=== PATIENT | female | born 2000 | race Caucasian/White ===

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

== ENCOUNTER → 2018-05-27 | Outpatient (CLI) | payer BC, SELFPAY ==
[~2018-05-27] MED LIST changes: +Zofran Odt4 MG SL
[2018-05-29 22:10] LABS: CHLAMYDIA TRACHOMATIS, NAA Negative (Negative); NEISSERIA GONORRHOEAE, NAA Negative (Negative)
== END | disposition home or self-care (01) ==
LOC: LAB 16:39 → LAB SHORT 16:39
PROVIDERS: Obstetrics & Gynecology
DX: Z20.2 Contact with and (suspected) exposure to infections with a predominantly sexual mode of transmission (principal)
CPT/HCPCS: 87491; 87591

== ENCOUNTER 2018-12-04 19:32 | Observation (INO) | payer BC ==
[~2018-12-04] VITALS: Ht 162.6 cm; Wt 56.7 kg
[~2018-12-04 19:32] MED LIST changes: -ACET325 PO; -HYDR1TAB94 PO; -VITAFOL OB PO; -Verotin-Gr Cap1 EACH PO
[2018-12-04] MEDS ORDERED: Verotin-Gr Cap1 EACH PO (19:40)
[2018-12-04 19:55] LABS: Source, Urine Clean Catch
[2018-12-04 19:59] LABS: Appearance, Urine Clear (Clear); Bilirubin, Urine Neg (Neg); Blood, Urine Neg (Neg); Color, Urine Yellow (P-Yellow); Glucose Qualitative, Urine Neg (Neg); Ketones, Urine Neg (Neg); Leukocyte Esterase, Urine Neg (Neg); Nitrite, Urine Neg (Neg); Protein, Urine Neg (Neg); Urobilinogen, Urine NORM (Normal)
[2018-12-04 20:03] LABS: BASOPHILS ABSOLUTE AUTO 0.02 K/mm3 (0.00-0.23); BASOPHILS PERCENT AUTO 0 % (0-2); EOSINOPHILS PERCENT AUTO 1 % (0-6); Hematocrit 37.4 % (33.0-51.0); Hemoglobin 12.4 g/dL (11.5-16.0); IMMATURE GRAN ABSOLUTE AUTO 0.05 K/mm3 (0.00-0.10); IMMATURE GRAN PERCENT AUTO 1 % (0-1); LYMPHOCYTES ABSOLUTE AUTO 0.71 K/mm3 (0.84-5.20); LYMPHOCYTES PERCENT AUTO 8 % (21-46); MONOCYTES PERCENT AUTO 6 % (4-13); Mean Corpuscular HGB 29.3 pg (26.0-34.0); Mean Corpuscular HGB Conc 33.2 g/dL (31.5-36.5); Mean Corpuscular Volume 88 fL (80-100); Mean Platelet Volume 10.6 fL (9.1-12.4); NEUTROPHILS ABSOLUTE AUTO 7.17 K/mm3 (1.96-9.15); NEUTROPHILS PERCENT AUTO 84 % (41-73); Platelet Count 233 K/mm3 (150-400); RDW Coefficient Variation 13.2 % (11.7-14.2); Red Blood Cell Count 4.23 M/mm3 (3.80-5.20); White Blood Cell Count 8.55 K/mm3 (4.00-11.30)
[2018-12-04 20:52] LABS: Alanine Aminotransfer (ALT/SGP 32 U/L (12-78); Albumin, Blood 3.9 g/dL (3.4-5.0); Albumin/Globulin Ratio 0.9 (0.8-1.8); Alk Phos 70 U/L (50-136); Anion Gap 9 mmol/L (6-16); Aspartate Aminotrans (AST/SGOT 15 U/L (12-37); Bilirubin, Total 0.3 mg/dL (0.1-1.0); Blood Urea Nitrogen 4 mg/dL (8-24); Bun/Creatinine Ratio 8.2 (12.0-20.0); CO2, Blood 23 mmol/L (21-32); Calcium, Blood 8.9 mg/dL (8.5-10.1); Chloride, Blood 100 mmol/L (98-108); Creatinine, Blood 0.49 mg/dL (0.40-1.00); Globulin, Blood 4.3 g/dL (2.2-4.0); Glomerular Filtration Rate >60 (60-); Glucose, Blood 80 mg/dL (70-99); Potassium, Blood 3.6 mmol/L (3.5-5.5); Sodium, Blood 132 mmol/L (136-145); Total Protein, Blood 8.2 g/dL (6.4-8.2)
[2018-12-04 21:33] LABS: Beta HCG, Quantitative, Serum 131792 mIU/mL (0-3)
--- NOTE | 2018-12-05 07:25 | NUR ---
SHIFT SUMMARY PT WAS A NEW ADMIT LAST NIGHT FOR ACUTE APPY. SHE IS 11 WEEKS . PT HAS GOTTEN 2 DOSES OF UNASYN, IV FENTANYL FOR PAIN. SHE IS A&O, INDEP IN THE ROOM. SHE HAS BEEN NPO AFTER MN IN PREP FOR SURGERY TODAY. SURGICAL PACKET STARTED. REPORT PASSED TO ONCOMING SHIFT.
--- NOTE | 2018-12-05 11:59 | NUR ---
DAY SURGERY PT TAKEN TO DAY SURGERY BY TRISH SOTOMAYOR AT THIS TIME.
--- NOTE | 2018-12-05 12:21 | NUR ---
FBP RN UP TO ATTEMPT TO DETERMINE HEART TONES, UNABLE DUE TO GESTATION EXPECTED. LIMITED OB ULTRASOUND ORDERED PER VERBAL ORDER FROM DR DIEZ. ULTRASOUND NOTIFIED, WILL BE DONE HERE IN SDS AT BEDSIDE. MOTHER PRESENT AT BEDSIDE PER PATIENT REQUEST.
--- NOTE | 2018-12-05 12:24 | NUR ---
OFFSET SECOND PRESS OPERATOR HERE FOR ULTRASOUND NOW. OMAR TO BREAK ME FOR LUNCH, REPORT GIVEN.
--- NOTE | 2018-12-05 12:28 | NUR ---
PER ULTRASOUND, HEART RATE 169 BPM, WILL REPORT TO DR DIEZ AND DR OSORIO. PATIENT GETTING UP TO BR FOR UNMEASURED VOID.
--- NOTE | 2018-12-05 12:32 | NUR ---
NO CLIP NEEDED AND CHLORHEXIDINE WIPE DONE.
--- NOTE | 2018-12-05 13:03 | NUR ---
PT REPORTS NAUSEA. MED WITH ZOFRAN 4 MG IVP X 1-SEE EMAR.
--- NOTE | 2018-12-05 13:18 | NUR ---
PATIENT BACK FROM ANOTHER TRIP TO BR, BACK TO BED, DENIES NEEDS AT THIS TIME. PATIENT AND FAMILY UPDATED AND REASSUMED CARE.
--- NOTE | 2018-12-05 13:34 | NUR ---
NOTIFIED PACU OF PATIENT'S , WILL DEFER TO DR DIEZ FOR POST SURGICAL REPEAT OF ULTRASOUND.
--- NOTE | 2018-12-05 13:38 | NUR ---
WINDING INSPECTOR AND TESTER REPORT COMPLETED AT BEDSIDE WITH MANAS MURO RN.
--- NOTE | 2018-12-05 13:45 | NUR ---
PER DR DIEZ PATIENT REMOVED HER TONGUE RING AND GAVE IT TO HER MOTHER.
--- NOTE | 2018-12-05 13:50 | NUR ---
PATIENT REMEMBERED SHE HAD A SEPTUM PIERCING, PATIENT REMOVED AND GAVE TO HER MOTHER WELL.
--- NOTE | 2018-12-05 14:07 | NUR ---
DR OSORIO AT PATIENT BEDSIDE TO DISCUSS SURGERY WITH THE PATIENT.
--- NOTE | 2018-12-05 14:07 | NUR ---
DISCUSSED PATIENT'S ABDOMINAL ANCHORS WITH DR OSORIO. HE WILL ASSESS IN THE OR.
--- NOTE | 2018-12-05 14:19 | NUR ---
PATIENT IMMEDIATELY OPERATIVELY UNMEASURED VOID.
--- NOTE | 2018-12-05 15:55 | NUR ---
1650- HEART TONES 160 PER MINUTE PER ULTRASOUND
--- NOTE | 2018-12-05 16:20 | NUR ---
PT ARRIVED BACK TO ROOM 218 FROM PACU S/P LAP APPY PT REPORTS SHOULDER PAIN MORE THEN ANYTHING ELSE WANTING TO TRY SOMETHING TO EAT CL GIVEN WILL ORDER REG TRAY FOR DINNER PER PT REQ PT HAD NAUSEA MILD IN PACU STATED IT IS GETTING BETTER
--- NOTE | 2018-12-05 17:26 | NUR ---
PT ARRIVED POST-OP TO THE ROOM AT APPROXIMATELY 1615. PT ALERT AND ORIENTED. SHE REPORTS PAIN TO HER R SHOULDER BUT DENIES NEED FOR PAIN MEDICATION. PT DENIES NAUSEA. ABD LAP SITES CLEAN DRY AND INTACT, STERI STRIPS IN PLACE. VSS. WILL CONTINUE TO MONITOR.
--- NOTE | 2018-12-05 19:27 | NUR ---
SHIFT SUMMARY PAIN HAS BEEN MINIMAL POST OP. PT IS TOLERATING PO WELL. VOIDING. VSS. REPORT GIVEN TO RENATA SOTOMAYOR.
--- NOTE | 2018-12-06 04:39 | NUR ---
SHIFT SUMMARY POD#1 LAP APPENDECTOMY; SITES CDI X3. ABD SOFT; BTX4; PT DECLINED PAIN MEDICATIONS T/O SHIFT. PT DENIES NAUSEA. CALL LIGHT IN REACH; PT DEMONSTRATES USE. WCTM UNTIL REPORT TO DAY SHIFT RN.
[2018-12-06] MEDS ORDERED: HYDR1TAB94 PO (11:22)
[2018-12-06] MEDS ORDERED: VITAFOL OB PO (11:36)
[2018-12-06] MEDS ORDERED: ACET325 PO (11:37)
--- NOTE | 2018-12-06 11:58 | NUR ---
ANUM HERNANDEZ IN TO SEE PT THIS AM, ASSESS LAP SITES. STATE PT MAY GO HOME TODAY, PLACE ORDERS. PT STATE FEELS READY TO GO HOME, STATE L UPPER ABD TENDERNESS CONTINUES HOWEVER STATE NOT PAINFUL, DECLINES PRN. IV D/C INTACT. D/C INSTRUCT PROVIDED WITH EMPHASIS ON F/U WITH DR OSORIO & REPORTING ANY S/S INFECTION. HARD COPY NORCO SCRIPT PROVIDED TO PT. SHE DECLINE W/C ESCORT, STATE PREFER TO AMBULATE FROM HOSP, ACCOMPANIED BY HER MOTHER.
== END 2018-12-06 12:00 | disposition home or self-care (01) ==
LOC: ER 19:32 → SURS 19:33 → ER 23:01 → SURS 23:01
PROVIDERS: Physician Assistant; ADMIT Surgery
PROC: 0DTJ4ZZ Resection of Appendix, Percutaneous Endoscopic Approach (ICD-10-PCS; principal; 2018-12-04)
DX: O99.611 Diseases of the digestive system complicating pregnancy, first trimester (principal); K35.80 Unspecified acute appendicitis; Z88.0 Allergy status to penicillin; Z87.891 Personal history of nicotine dependence; Z3A.10 10 weeks gestation of pregnancy
CPT/HCPCS: 36415; 76801; 76815; 76817; 76857; 80053; 81003; 84702; 85025; 88304; 96365; 96375; 99285-25; G0378; J0295; J1100; J1885; J2250; J2405; J2710; J3010; J7030; J7120

== ENCOUNTER → 2018-12-04 | Outpatient (CLI) | payer BC ==
[~2018-12-04] MED LIST changes: +ACET325 PO; +HYDR1TAB94 PO; +VITAFOL OB PO; +Verotin-Gr Cap1 EACH PO
[2018-12-04 19:14] LABS: BASOPHILS ABSOLUTE AUTO 0.02 K/mm3 (0.00-0.23); BASOPHILS PERCENT AUTO 0 % (0-2); EOSINOPHILS ABSOLUTE AUTO 0.13 K/mm3 (0.00-0.68); EOSINOPHILS PERCENT AUTO 2 % (0-6); Hematocrit 35.5 % (33.0-51.0); Hemoglobin 11.9 g/dL (11.5-16.0); IMMATURE GRAN ABSOLUTE AUTO 0.04 K/mm3 (0.00-0.10); IMMATURE GRAN PERCENT AUTO 1 % (0-1); LYMPHOCYTES ABSOLUTE AUTO 0.63 K/mm3 (0.84-5.20); LYMPHOCYTES PERCENT AUTO 7 % (21-46); MONOCYTES ABSOLUTE AUTO 0.53 K/mm3 (0.16-1.47); MONOCYTES PERCENT AUTO 6 % (4-13); Mean Corpuscular HGB 29.5 pg (26.0-34.0); Mean Corpuscular HGB Conc 33.5 g/dL (31.5-36.5); Mean Corpuscular Volume 88 fL (80-100); NEUTROPHILS ABSOLUTE AUTO 7.19 K/mm3 (1.96-9.15); NEUTROPHILS PERCENT AUTO 84 % (41-73); Platelet Count 234 K/mm3 (150-400); RDW Coefficient Variation 13.2 % (11.7-14.2); RDW Standard Deviation 42.8 fL (35.1-46.3); Red Blood Cell Count 4.04 M/mm3 (3.80-5.20); White Blood Cell Count 8.54 K/mm3 (4.00-11.30)
[2018-12-04 19:42] LABS: Alanine Aminotransfer (ALT/SGP 30 U/L (12-78); Albumin, Blood 3.8 g/dL (3.4-5.0); Albumin/Globulin Ratio 0.9 (0.8-1.8); Alk Phos 66 U/L (50-136); Anion Gap 6 mmol/L (6-16); Aspartate Aminotrans (AST/SGOT 16 U/L (12-37); Bilirubin, Total 0.3 mg/dL (0.1-1.0); Blood Urea Nitrogen 5 mg/dL (8-24); Bun/Creatinine Ratio 10.7 (12.0-20.0); CO2, Blood 25 mmol/L (21-32); Chloride, Blood 101 mmol/L (98-108); Creatinine, Blood 0.47 mg/dL (0.40-1.00); Globulin, Blood 4.1 g/dL (2.2-4.0); Glomerular Filtration Rate >60 (60-); Glucose, Blood 76 mg/dL (70-99); Potassium, Blood 3.7 mmol/L (3.5-5.5); Sodium, Blood 132 mmol/L (136-145); Total Protein, Blood 7.9 g/dL (6.4-8.2)
== END ==
LOC: LAB SHORT 19:03 → LAB 19:03
PROVIDERS: Nurse Practitioner
DX: R10.9 Unspecified abdominal pain (principal); R50.9 Fever, unspecified
CPT/HCPCS: 80053; 85025; 87086

== ENCOUNTER 2019-01-22 19:36 | Emergency (ER) | payer BC ==
[~2019-01-22] VITALS: Ht 162.6 cm; Wt 56.7 kg
[~2019-01-22 19:36] MED LIST changes: +ACET325 PO; +HYDR1TAB94 PO; +VITAFOL OB PO; +Verotin-Gr Cap1 EACH PO
[2019-01-22] MEDS ORDERED: ONDA4ODT MM (21:06)
[2019-01-22] MEDS ORDERED: IBUP800 PO (21:19)
[2019-01-22] MEDS ORDERED: RIZATRIPTAN5 MG (21:20)
[2019-01-22] MEDS ORDERED: ABAT250V (21:20)
== END 2019-01-22 21:14 | disposition home or self-care (01) ==
LOC: ER 19:36
DX: G43.909 Migraine, unspecified, not intractable, without status migrainosus (principal); R03.0 Elevated blood-pressure reading, without diagnosis of hypertension; Z88.0 Allergy status to penicillin; Z79.899 Other long term (current) drug therapy
CPT/HCPCS: 96361; 96374; 96375; 99283-25; J0780; J1100; J1200; J1885; J7030

== ENCOUNTER 2019-11-27 15:16 | Emergency (ER) | payer OTHER, BC ==
[~2019-11-27] VITALS: Ht 162.6 cm; Wt 65.8 kg
[~2019-11-27 15:16] MED LIST changes: +ABAT250V; +IBUP800 PO; +ONDA4ODT MM; +RIZATRIPTAN5 MG
[2019-11-27] MEDS ORDERED: DESVENLAFAXINE25 MG PO (15:33)
[2019-11-27] MEDS ORDERED: GABAPENTIN600 MG PO (15:33)
== END 2019-11-27 15:58 | disposition home or self-care (01) ==
LOC: ER 15:16
DX: S93.401A Sprain of unspecified ligament of right ankle, initial encounter (principal); G43.909 Migraine, unspecified, not intractable, without status migrainosus; Z88.0 Allergy status to penicillin; Z79.899 Other long term (current) drug therapy; Z87.891 Personal history of nicotine dependence; W10.9XXA Fall (on) (from) unspecified stairs and steps, initial encounter
CPT/HCPCS: 73610; 99283-25

== ENCOUNTER → 2020-09-12 | Outpatient (CLI) | payer BC ==
[~2020-09-12] MED LIST changes: +DESVENLAFAXINE25 MG PO; +GABAPENTIN600 MG PO
[2020-09-12 16:21] LABS: BASOPHILS ABSOLUTE AUTO 0.03 K/mm3 (0.00-0.23); BASOPHILS PERCENT AUTO 0 % (0-2); EOSINOPHILS ABSOLUTE AUTO 0.18 K/mm3 (0.00-0.68); EOSINOPHILS PERCENT AUTO 3 % (0-6); Hematocrit 33.5 % (33.0-51.0); Hemoglobin 11.2 g/dL (11.5-16.0); IMMATURE GRAN ABSOLUTE AUTO 0.02 K/mm3 (0.00-0.10); IMMATURE GRAN PERCENT AUTO 0 % (0-1); LYMPHOCYTES ABSOLUTE AUTO 1.96 K/mm3 (0.84-5.20); LYMPHOCYTES PERCENT AUTO 29 % (21-46); MONOCYTES ABSOLUTE AUTO 0.35 K/mm3 (0.16-1.47); MONOCYTES PERCENT AUTO 5 % (4-13); Mean Corpuscular HGB 28.6 pg (26.0-34.0); Mean Corpuscular HGB Conc 33.4 g/dL (31.5-36.5); Mean Corpuscular Volume 86 fL (80-100); Mean Platelet Volume 10.5 fL (9.1-12.4); NEUTROPHILS ABSOLUTE AUTO 4.23 K/mm3 (1.96-9.15); NEUTROPHILS PERCENT AUTO 62 % (41-73); Platelet Count 295 K/mm3 (150-400); RDW Coefficient Variation 12.7 % (11.7-14.2); RDW Standard Deviation 39.3 fL (35.1-46.3); Red Blood Cell Count 3.91 M/mm3 (3.80-5.20); White Blood Cell Count 6.77 K/mm3 (4.00-11.30)
[2020-09-12 16:38] LABS: Alanine Aminotransfer (ALT/SGP 24 U/L (12-78); Albumin, Blood 4.4 g/dL (3.4-5.0); Albumin/Globulin Ratio 1.2 (0.8-1.8); Alk Phos 87 U/L (40-126); Anion Gap 8 mmol/L (6-16); Aspartate Aminotrans (AST/SGOT 17 U/L (12-37); Bilirubin, Total 0.2 mg/dL (0.1-1.0); Blood Urea Nitrogen 8 mg/dL (8-24); Bun/Creatinine Ratio 13.3 (12.0-20.0); CO2, Blood 30 mmol/L (21-32); Calcium, Blood 9.4 mg/dL (8.5-10.1); Chloride, Blood 101 mmol/L (98-108); Globulin, Blood 3.6 g/dL (2.2-4.0); Glomerular Filtration Rate >60 (60-); Glucose, Blood 86 mg/dL (70-99); Potassium, Blood 3.6 mmol/L (3.5-5.5); Sodium, Blood 139 mmol/L (136-145); Thyroid Stimulating Hormone 2.428 uIU/mL (0.360-4.800)
== END | disposition home or self-care (01) ==
LOC: LAB SHORT 16:16 → PLD 16:16
PROVIDERS: Physician Assistant
DX: R00.2 Palpitations (principal)
CPT/HCPCS: 80053; 84443; 85025; 85379

== ENCOUNTER 2021-04-29 13:54 | Emergency (ER) | payer BC ==
[~2021-04-29] VITALS: Ht 162.6 cm; Wt 59.0 kg
[2021-04-29 14:24] LABS: BASOPHILS ABSOLUTE AUTO 0.05 K/mm3 (0.00-0.23); BASOPHILS PERCENT AUTO 1 % (0-2); EOSINOPHILS ABSOLUTE AUTO 0.15 K/mm3 (0.00-0.68); EOSINOPHILS PERCENT AUTO 2 % (0-6); Hematocrit 33.9 % (33.0-51.0); Hemoglobin 11.3 g/dL (11.5-16.0); IMMATURE GRAN ABSOLUTE AUTO 0.02 K/mm3 (0.00-0.10); IMMATURE GRAN PERCENT AUTO 0 % (0-1); LYMPHOCYTES ABSOLUTE AUTO 2.24 K/mm3 (0.84-5.20); LYMPHOCYTES PERCENT AUTO 29 % (21-46); MONOCYTES ABSOLUTE AUTO 0.63 K/mm3 (0.16-1.47); MONOCYTES PERCENT AUTO 8 % (4-13); Mean Corpuscular HGB 28.6 pg (26.0-34.0); Mean Corpuscular HGB Conc 33.3 g/dL (31.5-36.5); Mean Corpuscular Volume 86 fL (80-100); Mean Platelet Volume 11.2 fL (9.1-12.4); NEUTROPHILS ABSOLUTE AUTO 4.56 K/mm3 (1.96-9.15); NEUTROPHILS PERCENT AUTO 60 % (41-73); Platelet Count 277 K/mm3 (150-400); RDW Coefficient Variation 12.5 % (11.7-14.2); RDW Standard Deviation 39.2 fL (35.1-46.3); Red Blood Cell Count 3.95 M/mm3 (3.80-5.20); White Blood Cell Count 7.65 K/mm3 (4.00-11.30)
[2021-04-29 14:40] LABS: Alanine Aminotransfer (ALT/SGP 25 U/L (12-78); Albumin, Blood 4.2 g/dL (3.4-5.0); Albumin/Globulin Ratio 1.2 (0.8-1.8); Alk Phos 95 U/L (50-136); Anion Gap 4 mmol/L (6-16); Aspartate Aminotrans (AST/SGOT 17 U/L (12-37); Bilirubin, Total 0.2 mg/dL (0.1-1.0); Blood Urea Nitrogen 8 mg/dL (8-24); Bun/Creatinine Ratio 11.4 (12.0-20.0); CO2, Blood 29 mmol/L (21-32); Calcium, Blood 9.3 mg/dL (8.5-10.1); Chloride, Blood 105 mmol/L (98-108); Globulin, Blood 3.6 g/dL (2.2-4.0); Glomerular Filtration Rate >60 (60-); Glucose, Blood 82 mg/dL (70-99); Potassium, Blood 3.8 mmol/L (3.5-5.5); Sodium, Blood 138 mmol/L (136-145); Total Protein, Blood 7.8 g/dL (6.4-8.2)
== END 2021-04-29 15:46 | disposition home or self-care (01) ==
LOC: ER 13:54
PROVIDERS: Physician Assistant
DX: F44.4 Conversion disorder with motor symptom or deficit (principal); Z88.0 Allergy status to penicillin; Z79.899 Other long term (current) drug therapy
CPT/HCPCS: 36415; 70450; 80053; 85025; 99284-25

== ENCOUNTER 2021-09-10 12:52 | Emergency (ER) | payer BC ==
[~2021-09-10] VITALS: Ht 162.6 cm; Wt 59.0 kg
[2021-09-10] MEDS ORDERED: DESVENLAFAXINE100 M3 PO (13:37)
[2021-09-10] MEDS ORDERED: TOPI50 PO (13:38)
[2021-09-10 13:50] LABS: BASOPHILS ABSOLUTE AUTO 0.05 K/mm3 (0.00-0.23); BASOPHILS PERCENT AUTO 1 % (0-2); EOSINOPHILS ABSOLUTE AUTO 0.14 K/mm3 (0.00-0.68); EOSINOPHILS PERCENT AUTO 2 % (0-6); Hematocrit 37.3 % (33.0-51.0); Hemoglobin 12.3 g/dL (11.5-16.0); IMMATURE GRAN ABSOLUTE AUTO 0.02 K/mm3 (0.00-0.10); IMMATURE GRAN PERCENT AUTO 0 % (0-1); LYMPHOCYTES ABSOLUTE AUTO 1.76 K/mm3 (0.84-5.20); LYMPHOCYTES PERCENT AUTO 25 % (21-46); MONOCYTES ABSOLUTE AUTO 0.51 K/mm3 (0.16-1.47); MONOCYTES PERCENT AUTO 7 % (4-13); Mean Corpuscular HGB 28.5 pg (26.0-34.0); Mean Corpuscular Volume 87 fL (80-100); Mean Platelet Volume 10.9 fL (9.1-12.4); NEUTROPHILS ABSOLUTE AUTO 4.44 K/mm3 (1.96-9.15); NEUTROPHILS PERCENT AUTO 64 % (41-73); Platelet Count 310 K/mm3 (150-400); RDW Coefficient Variation 12.6 % (11.7-14.2); Red Blood Cell Count 4.31 M/mm3 (3.80-5.20); White Blood Cell Count 6.92 K/mm3 (4.00-11.30)
[2021-09-10 14:08] LABS: Alanine Aminotransfer (ALT/SGP 22 U/L (12-78); Alk Phos 97 U/L (50-136); Anion Gap 4 mmol/L (6-16); Aspartate Aminotrans (AST/SGOT 17 U/L (12-37); Bilirubin, Total 0.2 mg/dL (0.1-1.0); Blood Urea Nitrogen 8 mg/dL (8-24); Bun/Creatinine Ratio 10.4 (12.0-20.0); CO2, Blood 27 mmol/L (21-32); Calcium, Blood 9.7 mg/dL (8.5-10.1); Chloride, Blood 108 mmol/L (98-108); Creatinine, Blood 0.77 mg/dL (0.40-1.00); Globulin, Blood 4.1 g/dL (2.2-4.0); Glomerular Filtration Rate >60 (60-); Glucose, Blood 99 mg/dL (70-99); Potassium, Blood 3.2 mmol/L (3.5-5.5); Sodium, Blood 139 mmol/L (136-145); Total Protein, Blood 8.1 g/dL (6.4-8.2)
== END 2021-09-10 15:34 | disposition home or self-care (01) ==
LOC: ER 12:52
PROVIDERS: Emergency Medicine
DX: R10.9 Unspecified abdominal pain (principal); D64.9 Anemia, unspecified; Z87.891 Personal history of nicotine dependence
CPT/HCPCS: 36415; 80053; 81000; 81025; 85025; 86850; 86900; 86901; 99283-25; J7030

== ENCOUNTER → 2021-11-29 | Outpatient (CLI) | payer BC ==
[~2021-11-29] MED LIST changes: +DESVENLAFAXINE100 M3 PO; +TOPI50 PO
[2021-11-29 16:58] LABS: BASOPHILS ABSOLUTE AUTO 0.06 K/mm3 (0.00-0.23); BASOPHILS PERCENT AUTO 1 % (0-2); EOSINOPHILS ABSOLUTE AUTO 0.35 K/mm3 (0.00-0.68); EOSINOPHILS PERCENT AUTO 4 % (0-6); Hematocrit 33.7 % (33.0-51.0); Hemoglobin 11.4 g/dL (11.5-16.0); IMMATURE GRAN ABSOLUTE AUTO 0.03 K/mm3 (0.00-0.10); IMMATURE GRAN PERCENT AUTO 0 % (0-1); LYMPHOCYTES ABSOLUTE AUTO 1.97 K/mm3 (0.84-5.20); LYMPHOCYTES PERCENT AUTO 22 % (21-46); MONOCYTES ABSOLUTE AUTO 0.63 K/mm3 (0.16-1.47); MONOCYTES PERCENT AUTO 7 % (4-13); Mean Corpuscular HGB 29.3 pg (26.0-34.0); Mean Corpuscular HGB Conc 33.8 g/dL (31.5-36.5); Mean Corpuscular Volume 87 fL (80-100); Mean Platelet Volume 10.5 fL (9.1-12.4); NEUTROPHILS ABSOLUTE AUTO 6.07 K/mm3 (1.96-9.15); NEUTROPHILS PERCENT AUTO 67 % (41-73); Platelet Count 269 K/mm3 (150-400); RDW Coefficient Variation 13.1 % (11.7-14.2); RDW Standard Deviation 40.6 fL (35.1-46.3); Red Blood Cell Count 3.89 M/mm3 (3.80-5.20); White Blood Cell Count 9.11 K/mm3 (4.00-11.30)
[2021-11-29 17:09] LABS: Anion Gap 4 mmol/L (6-16); Blood Urea Nitrogen 10 mg/dL (8-24); Bun/Creatinine Ratio 13.9 (12.0-20.0); CO2, Blood 23 mmol/L (21-32); Calcium, Blood 8.9 mg/dL (8.5-10.1); Chloride, Blood 103 mmol/L (98-108); Creatinine, Blood 0.72 mg/dL (0.40-1.00); Glomerular Filtration Rate >60 (60-); Glucose, Blood 80 mg/dL (70-99); Potassium, Blood 3.5 mmol/L (3.5-5.5); Sodium, Blood 130 mmol/L (136-145)
== END ==
LOC: LAB SHORT 16:54
PROVIDERS: Physician Assistant Surgical
DX: R06.00 Dyspnea, unspecified (principal)
CPT/HCPCS: 80048; 85025; 85379

== ENCOUNTER 2022-07-29 13:04 | Emergency (ER) | payer BC ==
[~2022-07-29] VITALS: Ht 165.1 cm; Wt 54.4 kg
[~2022-07-29 13:04] MED LIST changes: +DESVENLAFAXINE50 M3 PO; +PRAMIPEXOLE0.125 M1 PO
== END 2022-07-29 16:45 | disposition home or self-care (01) ==
LOC: ER 13:04
DX: R41.82 Altered mental status, unspecified (principal); Z88.0 Allergy status to penicillin; Z87.891 Personal history of nicotine dependence; Z79.899 Other long term (current) drug therapy
CPT/HCPCS: 70450; 82947; 93005; 93010; 96365; 99285-25; J1953

== ENCOUNTER 2022-07-30 10:05 | Inpatient (IN) | payer BC ==
[~2022-07-30] VITALS: Ht 165.1 cm; Wt 57.3 kg
[2022-07-30 10:50] LABS: Calcium, Ionized (POC) 1.12 mmol/L (1.10-1.46); Chloride (POC) 109 mmol/L (98-108); Creatinine (POC) 0.6 mg/dL (0.6-1.0); Glucose (ISTAT POC) 86 mg/dL (70-99); Hemoglobin (POC) 11.6 g/dL (12.0-16.0); Potassium (POC) 3.8 mmol/L (3.5-5.5); Sodium (POC) 140 mmol/L (135-148); Total CO2 (POC) 17 mmol/L (21-32)
--- NOTE | 2022-07-30 22:41 | NUR ---
ADMIT PT ARRIVED TO PCU FROM ED VIA ED STRETCHER AT APPROX 2100. PT SLID BY 3 STAFF FROM ED STRETCHER TO PCU BED. PT ACCOMPANIED BY 2 FAMILY MEMBERS, MOM ARRIVED SHORTLY AFTER. PT ALERT, NON VERBAL INITIALLY BUT BEGAN TO SPEAK SHORTLY INTO ASSESSMENT. VSS. NEURO CHECK DONE, SEE ASSESSMENT. NEW IV PLACED IN R AC. UPON STARTING ORDERED MEDICATION, CEREBYX VIA IV, PT C/O OF A BURNING SENSATION T/O BODY. MEDICATION STOPPED. NO RASH, VSS. CALL PLACED TO MD HAAS, WHO AGREED WITH STOPPING THE MEDICATION. NO FURTHER ORDERS RECEIVED. PT ORIENTED TO ROOM, CALL LIGHT. FAMILY AT BEDSIDE, SEIZURE PADS IN PLACE.
[2022-07-31 02:31] LABS: Appearance, CSF Clear (Clear); Color, CSF No Color (No Color); RBC Count, CSF 0 /mm3 (0-0); WBC Count, CSF 1 /mm3 (0-5)
[2022-07-31 02:42] LABS: RBC Count, CSF 0 /mm3 (0-0); WBC Count, CSF 0 /mm3 (0-5)
[2022-07-31 02:43] LABS: Appearance, CSF Clear (Clear); Color, CSF No Color (No Color)
[2022-07-31 02:59] LABS: Glucose, CSF 63 mg/dL (40-70)
[2022-07-31 04:16] LABS: Cryptococcus Neoformans/Gattii Not Detected (NOT DETECT); Enterovirus Not Detected (NOT DETECT); Escherichia Coli K1 Not Detected (NOT DETECT); Haemophilus Influenza Not Detected (NOT DETECT); Herpes Simplex Virus 1 Not Detected (NOT DETECT); Herpes Simplex Virus 2 Not Detected (NOT DETECT); Human Herpesvirus 6 Not Detected (NOT DETECT); Human Parechovirus Not Detected (NOT DETECT); Listeria Monocytogenes Not Detected (NOT DETECT); Neisseria Meningitidis Not Detected (NOT DETECT); Streptococcus Agalactiae Not Detected (NOT DETECT); Streptococcus Pneumoniae Not Detected (NOT DETECT); Varicella Zoster Virus Not Detected (NOT DETECT)
[2022-07-31 04:37] LABS: BASOPHILS ABSOLUTE AUTO 0.04 K/mm3 (0.00-0.23); BASOPHILS PERCENT AUTO 1 % (0-2); EOSINOPHILS ABSOLUTE AUTO 0.37 K/mm3 (0.00-0.68); EOSINOPHILS PERCENT AUTO 6 % (0-6); Hematocrit 32.2 % (33.0-51.0); Hemoglobin 10.5 g/dL (11.5-16.0); IMMATURE GRAN ABSOLUTE AUTO 0.03 K/mm3 (0.00-0.10); IMMATURE GRAN PERCENT AUTO 1 % (0-1); LYMPHOCYTES ABSOLUTE AUTO 2.56 K/mm3 (0.84-5.20); LYMPHOCYTES PERCENT AUTO 39 % (21-46); MONOCYTES ABSOLUTE AUTO 0.58 K/mm3 (0.16-1.47); MONOCYTES PERCENT AUTO 9 % (4-13); Mean Corpuscular HGB 28.6 pg (26.0-34.0); Mean Corpuscular HGB Conc 32.6 g/dL (31.5-36.5); Mean Corpuscular Volume 88 fL (80-100); Mean Platelet Volume 11.2 fL (9.1-12.4); NEUTROPHILS ABSOLUTE AUTO 2.95 K/mm3 (1.96-9.15); NEUTROPHILS PERCENT AUTO 45 % (41-73); Platelet Count 258 K/mm3 (150-400); RDW Coefficient Variation 12.8 % (11.7-14.2); Red Blood Cell Count 3.67 M/mm3 (3.80-5.20); White Blood Cell Count 6.53 K/mm3 (4.00-11.30)
[2022-07-31 05:02] LABS: Albumin, Blood 3.3 g/dL (3.4-5.0); Bilirubin, Total 0.3 mg/dL (0.1-1.0); Bun/Creatinine Ratio 17.9 (12.0-20.0); Calcium, Blood 8.9 mg/dL (8.5-10.1); Creatinine, Blood 0.78 mg/dL (0.40-1.00); Globulin, Blood 3.2 g/dL (2.2-4.0); Potassium, Blood 3.7 mmol/L (3.5-5.5); Total Protein, Blood 6.5 g/dL (6.4-8.2)
--- NOTE | 2022-07-31 05:58 | NUR ---
SHIFT SUMMARY NO ACUTE CHANGES THIS SHIFT. VSS. NO SEIZURE ACTIVITY THIS SHIFT. NEURO CHECKS REMAIN UNCHANGED. FAMILY MEMEBER STAY NIGHT WITH PT. MD GONZALES IN ROOM FOR LUMBAR PUNCTURE. CSF SENT TO LAB. PT TOLERATED WELL/SLEPT THROUGH MOST OF IT. PT LETHARGIC BUT WILL AWAKEN TO SHAKING SHOULDER. PT SLEPT MOST OF NIGHT. GRANDMA AND MOM STOPPED BY IN MORNING FOR UPDATE, BOTH WORK AT THIS HOSPITAL TODAY AND WILL BE ROUTINELY CHECKING IN. CALL LIGHT IN REACH. BED ALARM ON. SEIZURE PADS IN PLACE.
[2022-07-31 06:49] LABS: Source, Urine Clean Catch
[2022-07-31 06:56] LABS: Appearance, Urine Clear (Clear); Bilirubin, Urine Neg (Neg); Blood, Urine Neg (Neg); Color, Urine Yellow (P-Yellow); Glucose Qualitative, Urine Neg (Neg); Ketones, Urine Neg (Neg); Leukocyte Esterase, Urine Neg (Neg); Nitrite, Urine Neg (Neg); Protein, Urine Neg (Neg); Specific Gravity, Urine 1.025 (1.003-1.022); Urobilinogen, Urine NORM (Normal)
--- NOTE | 2022-07-31 07:23 | NUR ---
SEIZURE- This RN was called into room by sig other of Pt due to seizure activity that started at 718. R side arm shaking continuously with the rest of her body jerking occasionally. Pt not responding during seizure. Lasted until 720. VSS. Post seizure Pt unable to talk but is able to follow this RN finger with eyes and grasp hands. R side weaker then L. Pt was given 1mg Ativan. Physician notified
--- NOTE | 2022-07-31 09:25 | NUR ---
SEIZURE- Pt had another seizure like activity from . Pt was given 2 mg ativan. Activity was similar in appearance to this AM activity with R arm shaking and the rest of body jerking occasionally. VS remained stable. Pt lethargic after. Physician will be notified.
--- NOTE | 2022-07-31 15:25 | NUR ---
Update: Pt had a 1min 30sec R side seizure like activity at around 1430. VSS throughout. Post pt was lethargic but able to make needs known about 5 minutes after. Pt just now had another seizure like activity that appeared to be more full body, except for L side activity was absent. This seizure activity lasted from 4775-1906 (6min). Physician notified of both seizures and order for stat pro-calcitonin ordered. Pt vss. Currently appears to be sleeping. Does wake to verbal stimulus, able to follow directions and has very weak grasps but unable to speak at this time. Will continue to monitor.
--- NOTE | 2022-07-31 16:41 | NUR ---
update: Pt had R side seizure like activity lasting for 4 min. VSS throughout. Non-responsive for 3 minutes after activity stopped. When Pt did open Eyes she was able to follow this RN with her eyes, had very weak hand grasp but was unable to speak, smile, frown or make facial changes. Pt did nod head yes when asked if she was tired. Family in room states that the last 3 seizure like activities were preceded with high emotion and crying. Physician aware. No changes at this time. Call light in reach. Family in room.
--- NOTE | 2022-07-31 17:01 | NUR ---
PT had another event, just like previously, lasting 5 minutes. Family stated it started when she was starting to cry again. Will continue to monitor.
--- NOTE | 2022-07-31 18:23 | NUR ---
Shift Summary: Since last note Pt had 2 more episodes of seizure like activity, both lasting 4 minutes. Multiple family in room for these events. Limited the number of visitors to 2 and decreased stimulus in room. VSS throughout both events with Pt being drowsy after both, but able to follow directions for neuro assessment, except talking. Pt is very weak with her leg movements and hand grasps and very slow with facial expression. Pt has had a total of 8 episodes today lasting anywhere from 30sec to 6 min. Pt has been sleeping the majority of the day but wakes to verbal stimulus. VSS throughout the day. Pt had 2 large BM's and was able to get up to bedside commode with 2 person assist. Pt has had a poor appitite and family was informed they could bring in food since pt on a regular diet. Pt stable at this time. Will report to night RN.
--- NOTE | 2022-07-31 20:28 | NUR ---
UPDATE PT EXPERIENCED A SIEZURE STARTING FROM 2013 42 SEC AND ENDING @ 2015 38 SEC. RIGHT HAND/ARM CONVULSIONS NOTED, BUT NO MAJOR FULL BODY CLONIC ACTIVITY. PT'S AIRWAY AND O2 SATURATION WERE MAINTIANED T/O SEIZURE WITH PT'S SPO2 STAYING >95% ON RA. SEIZURE PADS ARE IN PLACE AND PT SAFETY MAINTAINED T/O SEIZURE. AFTER SEIZURE PT WAS ABLE TO FOLLOW COMMANS FROM STAFF. PUPILS 3MM AND REACTIVE WITH LIGHT BILAT. EYES ABLE TO TRACK PEN LIGHT UPON INSTRUCTION, PT ABLE TO SQUEEZE HANDS WITH SOME RIGHT SIDED WEAKNESS NOTED. PT UNABLE TO SPEAK RIGHT AFTER SEIZURE, BUT DAY SHIFT NURSE AND FAMILY STATED THIS WAS NORMALL FOR PT POST SEIZURE FOR SOME TIME. VSS T/O SEIZURE. WILL CONTINUE TO CLOSELY MONITOR PT
--- NOTE | 2022-08-01 03:07 | NUR ---
UPDATE PT EXPERIENCED ANOTHER SEIZURE LASTING FROM 0531-1643 08 SEC. AIRWAY AND PT SAFELTY MAINTAINED T/O SEIZURE WITH SPO2>95% ON RA. RIGHT HAND/ARM TONIC MOVEMNTS NOTED. PT'S EYES REMAINED CLOSED T/O SEIZURE. AFER SEIZURE HAD STOPPED, PT'S EYES OPENED TO VERBAL STIMULI, BUT UNABLE TO VERBALIZE ANSWERS. PUPILS DILATED TO 4MM, BUT EQUALLY REACTIVE TO LIGHT AND ABLE TO TRACK PEN LIGHT EFFECTIVLY. PT ABLE TO SQUEEZE HANDS AND LIFT LIMBS WITH EQUAL MOVEMENTS BILAT. RIGHT SIDED WEAKNESS NOTED WHEN SQUEEZING WITH RIGHT HAND. WILL CONTINUE TO MONITOR PT CLOSELY
--- NOTE | 2022-08-01 03:47 | NUR ---
UPDATE PT EXPERIENCED ANOTHER SEIZURE LASTING FROM 0339 40SEC TO 0341 05 SEC. SEE PREVIOUS NOTED ABOUT SEIZURE ACTIVITY. PT HAD MORE RIGHT LEG INVOLVMENT THIS TIME HOWEVER. POST SEIZURE NEURO CHECK SIMILAR TO PREVIOUS NOTE. VSS STABLE T/O SEIZURE WILL CONTINUE TO CLOSELY MONITOR
--- NOTE | 2022-08-01 05:05 | NUR ---
SHIFT SUMMARY PT IS A/OX4 AND FOLLOWS DIRECTIONS GIVEN BY STAFF. PT HAD A TOTAL OF 3 SEIZURES LASTING AROUND 2MIN EACH DURING MY SHIFT. FAMILY PRESENT FOR EACH EPISODE AND VSS STABLE T/O EACH EPISODE. PT IS LETHARGIC AFTER SEIZURES BUT STILL RESPONDS TO VERBAL STIMULI. SEE THIS RN'S NOTES ABOUT SPECIFIC EPISODE DETAILS. DONOVAN CHECKS COMPLETED ROUTINELY T/O THE SHIFT WITH MINIMAL CHANGES NOTED. SEIZURE PADS IN PLACE AND PT'S SAFETY MAINTAINED DURING EACH EPISODE. MAINTAINS SPO2>95% ON RA. PRESSURES DROP SLIGHTLY AFTER EACH EPISODE, BUT RECOVERS QUICKLY. WILL CONTINUE TO MONITOR PT CLOSELY. VSS/ NADN T/O THE SHIFT
--- NOTE | 2022-08-01 06:38 | NUR ---
UPDATE PT EXPERIENCED ANOTHER SEIZURE LASTING FROM [id number]. CLONIC ACTIVITY STARTED AGAIN IN RIGHT ARM/LEG. THEN STARTED TO PROGRESS TO INCLUDE MORE OF HER UPPER BODY. VSS T/O THE EPISODE WITH SPO2 >95% RA. SEIZURE PADS IN PLACE AND PATIENT SAFETY MAINTAINED T/O THE EPISODE. AFTER SEIZURE, PT'S BEHAVIOR SIMILAR TO OTHER EPISODES. PUPILS 4MM AND REACTIVE TO LIGHT BILATERALLY. OCCULER MOTOR FUNCTION INTACT ALONG WITH GROSS MOVEMENTS OF LIMBS. RIGHT SIDED WEAKNESS STILL NOTED WHEN SQUEEZING HANDS. FAMILY PRESENT DURING EPISODE. VSS, WILL CONTINUE TO MONITOR PT
--- NOTE | 2022-08-01 10:41 | NUR ---
AM NOTES; PT HAD 2 WITNESSED SEIZURE LIKE ACTIVITY SINCE THIS MORNING BY THIS RN, LASTED ABOUT 3 MINS IN TOTAL FOR BOTH SEIZURES BUT SIGNIFICANT OTHER STATED SHE HAD 3 MORE BEFORE SHIFT CHANGE. PT IS MORE TREMOLOUS ON THE RIGHT SIDE NOTICED THAT LEFT UPPER EXTREMITY IS RESTED ON THE PILLOW WITH NO MOVEMENTS WHILE RIGHT HAND IS EXTREMELY JERKING WHILE SEIZURE IS ONGOING. PT ALSO MOANING NOTICED SOME SWALLOWING MOVEMENT ON THE NECK. PT SEEMED LIKE UNABLE TO REMEMBER WHAT HAPPENED, MOSTLY NON VERBAL 15 MINS POST SEIZURE WILL JUST NOD YES/NO WITH QUESTIONS. PT HAS BEEN GETTING UP TO USE THE COMMODE SBA. DENIES ANY PAIN/DISCOMFORT JUST FEELING TIRED AND WEAK. PT REMAINS ON SEIZURE PROTOCOL, SEIZURE PADS IN PLACE. NO INJURY REPORTED DURING SEIAZURE ACTIVITY AT THIS TIME, STILL PLAN ON [place] TRANSFERRING THE PT POSSIBLY AT [facility]. AWAITING FOR BED AVAILABILITY. FAMILY AND SIGNIFICANT OTHER AT THE BEDSIDE. WILL CONTINUE TO MONITOR
--- NOTE | 2022-08-01 15:43 | NUR ---
PT TRANSFERRED TO [facility] VIA [facility] LEFT AT APPROX 1500, MOTHER AND SIGIFICANT OTHER AT THE BEDSIDE DURING THE TRANSFER. PT HAD ABOUT TOTAL OF 9 EPIDOSODES OF SEIZURE SINCE THIS MORNING ACTUALLY HAD ONE EPISODE IN THE [facility] AFTER BEING TRANSFERRED. ALL EPISODES ALMOST LASTED ABOUT 3-5 MINS, SAME PATTERNS. PT TO TRANSFER TO [address] NEURO FLOOR. REPORT GIVEN TO MEMO SOTOMAYOR. ALL BELONGINGS SENT WITH THE PT.
== END 2022-08-01 16:04 | disposition short-term general hospital (02) | DRG 101 ==
LOC: ER 10:05 → ERHOLD 10:06 → PCU 10:07
PROVIDERS: Emergency Medicine; Internal Medicine; ADMIT Family Medicine Adult Medicine
DX: R56.9 Unspecified convulsions (principal); F32.A Depression, unspecified; G43.909 Migraine, unspecified, not intractable, without status migrainosus; G40.409 Other generalized epilepsy and epileptic syndromes, not intractable, without status epilepticus; G93.81 Temporal sclerosis; Z87.891 Personal history of nicotine dependence; Z79.899 Other long term (current) drug therapy
CPT/HCPCS: 36415; 62270; 70544; 70551; 80047; 80053; 80177; 81003; 82945; 84145; 84146; 84157; 85014; 85025; 87070; 87205; 87483; 88108; 89051; 94762; 96365; 96366; 96372; 96375; 96376; 99285-25; A9270; G0378; J1650; J1953; J2060; J7030; Q2009

== ENCOUNTER → 2022-09-28 | Outpatient (CLI) | payer BC ==
[2022-09-29 14:05] LABS: Candida species (DNA Probe) Negative (NEGATIVE); G. vaginalis (DNA Probe) Negative (NEGATIVE); T. vaginalis (DNA Probe) Negative (NEGATIVE)
== END | disposition home or self-care (01) ==
LOC: LAB SHORT 16:04 → LAB 16:04
PROVIDERS: Physician Assistant
DX: R30.0 Dysuria (principal)
CPT/HCPCS: 87086; 87480; 87510; 87660

== ENCOUNTER 2022-10-09 23:45 | Emergency (ER) | payer BC ==
[~2022-10-09] VITALS: Ht 165.1 cm; Wt 59.0 kg
[2022-10-09] MEDS ORDERED: BUPROPION XL150 M1 PO (23:57)
[2022-10-10 00:04] LABS: BASOPHILS ABSOLUTE AUTO 0.05 K/mm3 (0.00-0.23); BASOPHILS PERCENT AUTO 1 % (0-2); EOSINOPHILS ABSOLUTE AUTO 0.21 K/mm3 (0.00-0.68); EOSINOPHILS PERCENT AUTO 3 % (0-6); Hematocrit 31.9 % (33.0-51.0); Hemoglobin 10.9 g/dL (11.5-16.0); IMMATURE GRAN ABSOLUTE AUTO 0.04 K/mm3 (0.00-0.10); IMMATURE GRAN PERCENT AUTO 1 % (0-1); LYMPHOCYTES ABSOLUTE AUTO 3.01 K/mm3 (0.84-5.20); LYMPHOCYTES PERCENT AUTO 43 % (21-46); MONOCYTES ABSOLUTE AUTO 0.58 K/mm3 (0.16-1.47); MONOCYTES PERCENT AUTO 8 % (4-13); Mean Corpuscular HGB 28.5 pg (26.0-34.0); Mean Corpuscular HGB Conc 34.2 g/dL (31.5-36.5); Mean Corpuscular Volume 84 fL (80-100); NEUTROPHILS ABSOLUTE AUTO 3.16 K/mm3 (1.96-9.15); NEUTROPHILS PERCENT AUTO 45 % (41-73); Platelet Count 371 K/mm3 (150-400); RDW Coefficient Variation 13.2 % (11.7-14.2); RDW Standard Deviation 39.7 fL (35.1-46.3); Red Blood Cell Count 3.82 M/mm3 (3.80-5.20); White Blood Cell Count 7.05 K/mm3 (4.00-11.30)
[2022-10-10 00:46] LABS: Salicylate <1.7 mg/dL (2.8-20.0)
[2022-10-10 00:56] LABS: Influenza A, PCR NEGATIVE (NEGATIVE); Influenza B, PCR NEGATIVE (NEGATIVE); Resp Syncytial Virus, PCR NEGATIVE (NEGATIVE); SARS-Cov-2 (COVID-19) PCR, MMC NEGATIVE (NEGATIVE)
[2022-10-10 01:03] LABS: Source, Urine Clean Catch
[2022-10-10 01:43] LABS: Appearance, Urine Clear (Clear); Bilirubin, Urine Neg (Neg); Blood, Urine Neg (Neg); Color, Urine Yellow (P-Yellow); Glucose Qualitative, Urine Neg (Neg); Ketones, Urine Neg (Neg); Leukocyte Esterase, Urine Neg (Neg); Nitrite, Urine Neg (Neg); Protein, Urine Neg (Neg); Specific Gravity, Urine 1.015 (1.003-1.022); Urobilinogen, Urine NORM (Normal)
[2022-10-10 01:46] LABS: Alanine Aminotransfer (ALT/SGP 19 U/L (12-78); Albumin, Blood 3.8 g/dL (3.4-5.0); Albumin/Globulin Ratio 1.1 (0.8-1.8); Alk Phos 85 U/L (50-136); Anion Gap 8 mmol/L (6-16); Aspartate Aminotrans (AST/SGOT 16 U/L (12-37); Bilirubin, Total 0.2 mg/dL (0.1-1.0); Blood Urea Nitrogen 13 mg/dL (8-24); Bun/Creatinine Ratio 14.5 (12.0-20.0); CO2, Blood 24 mmol/L (21-32); Calcium, Blood 8.8 mg/dL (8.5-10.1); Chloride, Blood 110 mmol/L (98-108); Creatinine, Blood 0.89 mg/dL (0.40-1.00); Globulin, Blood 3.5 g/dL (2.2-4.0); Glomerular Filtration Rate 93 (60-); Glucose, Blood 95 mg/dL (70-99); Potassium, Blood 3.1 mmol/L (3.5-5.5); Sodium, Blood 142 mmol/L (136-145); Total Protein, Blood 7.3 g/dL (6.4-8.2)
[2022-10-10 01:48] LABS: Acetaminophen, Random <2.0 ug/mL (10.0-30.0)
[2022-10-10 01:56] LABS: U Amphetamine Screen Not Detected; U Barbituate Screen Not Detected; U Benzodiazapine Screen Not Detected; U Buprenorphine Screen Not Detected; U Cannabinoids Screen Not Detected; U Cocaine Screen Not Detected; U Methadone Screen Not Detected; U Methamphetamine Screen Not Detected; U Opiates Screen Not Detected; U Oxycodone Screen Not Detected; U Phencyclidine Screen Not Detected; U Propoxyphene Screen Not Detected
== END 2022-10-10 05:15 | disposition home or self-care (01) ==
LOC: ER 23:45
PROVIDERS: Emergency Medicine
DX: R56.9 Unspecified convulsions (principal); Z88.0 Allergy status to penicillin; Z88.8 Allergy status to other drugs, medicaments and biological substances; Z79.899 Other long term (current) drug therapy; Z87.891 Personal history of nicotine dependence; Z20.822 Contact with and (suspected) exposure to COVID-19
CPT/HCPCS: 0241U; 36415; 80053; 81003; 85025; 96374; 99284-25; G0480; J2060; J7030

== ENCOUNTER 2022-10-11 20:55 | Emergency (ER) | payer BC ==
[~2022-10-11] VITALS: Ht 165.1 cm; Wt 56.2 kg
[~2022-10-11 20:55] MED LIST changes: +BUPROPION XL150 M1 PO
[2022-10-11 21:15] LABS: Calcium, Ionized (POC) 1.18 mmol/L (1.10-1.46); Chloride (POC) 106 mmol/L (98-108); Creatinine (POC) 0.7 mg/dL (0.6-1.0); Glucose (ISTAT POC) 86 mg/dL (70-99); Hemoglobin (POC) 10.9 g/dL (12.0-16.0); Potassium (POC) 3.7 mmol/L (3.5-5.5); Sodium (POC) 140 mmol/L (135-148); Total CO2 (POC) 22 mmol/L (21-32)
== END 2022-10-11 23:23 | disposition home or self-care (01) ==
LOC: ER 20:55
PROVIDERS: Emergency Medicine
DX: G40.909 Epilepsy, unspecified, not intractable, without status epilepticus (principal); Z87.891 Personal history of nicotine dependence
CPT/HCPCS: 36415; 80047; 85014; J2060; J7120

== ENCOUNTER 2022-11-01 19:49 | Emergency (ER) | payer BC ==
[~2022-11-01] VITALS: Ht 165.1 cm; Wt 56.7 kg
[2022-11-01] MEDS ORDERED: BUPR100ER PO (20:09)
[2022-11-01 20:36] LABS: BASOPHILS ABSOLUTE AUTO 0.05 K/mm3 (0.00-0.23); BASOPHILS PERCENT AUTO 1 % (0-2); EOSINOPHILS ABSOLUTE AUTO 0.28 K/mm3 (0.00-0.68); EOSINOPHILS PERCENT AUTO 4 % (0-6); Hematocrit 32.9 % (33.0-51.0); Hemoglobin 10.9 g/dL (11.5-16.0); IMMATURE GRAN ABSOLUTE AUTO 0.02 K/mm3 (0.00-0.10); IMMATURE GRAN PERCENT AUTO 0 % (0-1); LYMPHOCYTES ABSOLUTE AUTO 2.75 K/mm3 (0.84-5.20); LYMPHOCYTES PERCENT AUTO 36 % (21-46); MONOCYTES ABSOLUTE AUTO 0.52 K/mm3 (0.16-1.47); MONOCYTES PERCENT AUTO 7 % (4-13); Mean Corpuscular HGB 28.1 pg (26.0-34.0); Mean Corpuscular HGB Conc 33.1 g/dL (31.5-36.5); Mean Corpuscular Volume 85 fL (80-100); Mean Platelet Volume 10.9 fL (9.1-12.4); NEUTROPHILS ABSOLUTE AUTO 4.06 K/mm3 (1.96-9.15); NEUTROPHILS PERCENT AUTO 53 % (41-73); Platelet Count 263 K/mm3 (150-400); RDW Coefficient Variation 13.2 % (11.7-14.2); RDW Standard Deviation 40.6 fL (35.1-46.3); Red Blood Cell Count 3.88 M/mm3 (3.80-5.20); White Blood Cell Count 7.68 K/mm3 (4.00-11.30)
[2022-11-01 20:50] LABS: Magnesium, Blood 2.1 mg/dL (1.6-2.4)
[2022-11-01 20:53] LABS: Albumin, Blood 3.9 g/dL (3.4-5.0); Albumin/Globulin Ratio 1.1 (0.8-1.8); Bilirubin, Total 0.2 mg/dL (0.1-1.0); Bun/Creatinine Ratio 14.7 (12.0-20.0); Creatinine, Blood 0.68 mg/dL (0.40-1.00); Globulin, Blood 3.4 g/dL (2.2-4.0); Potassium, Blood 3.3 mmol/L (3.5-5.5); Thyroid Stimulating Hormone 4.67 uIU/mL (0.360-4.800); Total Protein, Blood 7.3 g/dL (6.4-8.2)
== END 2022-11-01 23:08 | disposition home or self-care (01) ==
LOC: ER 19:49
PROVIDERS: Student in an Organized Health Care Education/Training Program
DX: R56.9 Unspecified convulsions (principal); Z88.0 Allergy status to penicillin; Z88.5 Allergy status to narcotic agent; Z79.899 Other long term (current) drug therapy; Z87.891 Personal history of nicotine dependence
CPT/HCPCS: 36415; 80053; 82947; 83735; 84146; 84443; 85025; A9270; J2060